=== PATIENT | female | born 1935 | race Caucasian/White ===

== ENCOUNTER 2019-04-01 10:47 | Outpatient (CLI) | payer MEDICARE, SELFPAY ==
[2019-04-01 13:21] LABS: Hemoglobin A1C 7.7 % (<5.7)
[2019-04-01 13:23] LABS: Cholesterol 171 mg/dL (0-200); HDL Direct 45 mg/dL (40-60); LDL Cholesterol Calculated 95 mg/dL (<130); Triglycerides 155 mg/dL (0-150)
== END 2019-04-01 10:48 | disposition home or self-care (01) ==
LOC: CHSLAB 10:50
PROVIDERS: PCP Nurse Practitioner Family; Visit Provider Nurse Practitioner Family
DX: E78.5 Hyperlipidemia, unspecified (principal); E11.9 Type 2 diabetes mellitus without complications
CPT/HCPCS: 36415; 80061; 83036

== ENCOUNTER 2019-11-02 10:56 | Outpatient (CLI) | payer MEDICARE, SELFPAY ==
--- NOTE | ~2019-11-02 | MM_ITS ---
EXAMINATION: MM screening marco a BI w hortencia HISTORY: Screening mammogram TECHNIQUE: Craniocaudal and mediolateral oblique 3-D tomosynthesis images were obtained and synthetic 2-D images were generated. CAD analysis was submitted and interpreted. COMPARISON: 10/28/2018, 10/08/2017, 10/01/2016 bilateral digital screening mammogram examinations BREAST PARENCHYMAL COMPOSITION: There are scattered areas of fibroglandular density. FINDINGS: There is no evidence of suspicious mass, calcification, or architectural distortion to sugg est malignancy in either breast. There has been no suspicious interval change. IMPRESSION: 1. No mammographic evidence of malignancy. 2. Recommend routine screening mammography in one year. BI-RADS Category 1: Negative Reviewed, dictated and finalized at location D.
== END 2019-11-02 10:57 | disposition home or self-care (01) ==
LOC: CHSIMG 10:58
PROVIDERS: PCP Family Medicine; Visit Provider Family Medicine
DX: Z12.31 Encounter for screening mammogram for malignant neoplasm of breast (principal)
CPT/HCPCS: 77063; 77067

== ENCOUNTER 2019-11-04 10:11 | Outpatient (CLI) | payer MEDICARE, SELFPAY ==
[2019-11-04 10:22] LABS: Basophils Absolute Auto 0.03 K/mm3 (0.00-0.10); Basophils Percent Auto 0.4 % (0.0-1.0); Eosinophils Absolute Auto 0.18 K/mm3 (0.02-0.50); Eosinophils Percent Auto 2.6 % (1.0-6.0); Hematocrit 39.1 % (35.0-42.0); Hemoglobin 11.9 g/dL (11.7-13.8); Immature Granulocyte Absolute 0.01 K/mm3 (0.00-0.00); Immature Granulocyte Percent A 0.1 % (0.0-0.0); Lymphocytes Absolute Auto 2.37 K/mm3 (1.10-4.50); Lymphocytes Percent Auto 34.4 % (18.0-42.0); Mean Corpuscular HGB Conc 30.4 g/dL (32.0-36.0); Mean Corpuscular Hemoglobin 26.7 pg (27.0-31.0); Mean Corpuscular Volume 87.7 fL (78.0-102.0); Mean Platelet Volume 8.9 fl (9.2-11.8); Monocytes Absolute Auto 0.57 K/mm3 (0.10-0.90); Monocytes Percent Auto 8.3 % (2.0-11.0); Neutrophils Absolute Auto 3.7 K/mm3 (1.7-7.2); Neutrophils Percent Auto 54.2 % (50.0-70.0); Platelet Count Result 330 K/mm3 (150-420); Red Blood Count 4.46 M/mm3 (4.20-5.40); Red Cell Distribution Width 13.8 % (11.6-14.4); White Blood Count 6.9 K/mm3 (4.8-10.8)
[2019-11-04 10:31] LABS: Hemoglobin A1C 7.7 % (<5.7)
[2019-11-04 12:00] LABS: Alanine Aminotransferase 22 U/L (14-59); Albumin Level 3.9 g/dL (3.4-5.0); Alkaline Phosphatase 112 U/L (46-116); Anion Gap 9 mmol/L (8-16); Aspartate Amino Transferase 18 U/L (15-37); Bilirubin,Total 0.4 mg/dL (0.00-1.00); Blood Urea Nitrogen 14 mg/dL (7-18); Calcium 9.3 mg/dL (8.5-10.1); Carbon Dioxide 30 mmol/L (21-32); Chloride 103 mmol/L (98-108); Cholesterol 185 mg/dL (0-200); Estimated Glomerular Filt Rate > 60; Glucose 156 mg/dL (70-99); HDL Direct 50 mg/dL (40-60); LDL Cholesterol Calculated 110 mg/dL (<130); Magnesium 1.9 mg/dL (1.8-2.4); Osmolality Calculated 297 mOsm/kg (285-295); Potassium 4.7 mmol/L (3.5-5.1); Sodium 142 mmol/L (136-145); Total Protein 7.1 g/dL (6.4-8.2); Triglycerides 127 mg/dL (0-150)
[2019-11-04 12:07] LABS: Thyroid Stimulating Hormone Reflex 1.34 u/IU/mL (0.36-3.74)
== END 2019-11-04 10:12 | disposition home or self-care (01) ==
LOC: CHSLAB 10:13
PROVIDERS: PCP Family Medicine; Visit Provider Family Medicine
DX: E83.42 Hypomagnesemia (principal); E11.9 Type 2 diabetes mellitus without complications; I10 Essential (primary) hypertension
CPT/HCPCS: 36415; 80053; 80061; 83036; 83735; 84443; 85025

== ENCOUNTER 2020-05-23 19:02 | Emergency (ER) | payer MEDICARE, SELFPAY ==
--- NOTE | ~2020-05-23 | XR_ITS ---
XR foot RT min 3V DATE: 05/23/2020 19:36 INDICATION: Right foot pain near talus following twisting injury TECHNIQUE: 4 views COMPARISON: None FINDINGS: Diffuse osteopenia. Prominent hallux valgus and bunion deformity. Prominent osteoarthritic arthritis and mild chondrocalcinosis at the first metatarsophalangeal joint. There is osteoarthritis at the second metatarsophalangeal joint as well. Narrowing at some distal in terphalangeal joints consistent with osteoarthritis. There is osteoarthritic change at the tarsal and tarsometatarsal joints, especially the first tarsome tatarsal joint. There is osteoarthritic change at the tibiotalar joint. Mild plantar and posterior calcaneal enthesopathy. No fracture or dislocation, periosteal reaction or bone destruction is evident. IMPRESSION: Osteopenia and polyarticular osteoarthritis Prominent hallux valgus and bunion deformity Reviewed, dictated and finalized at location A.
[2020-05-23 19:20] VITALS: BP 162/71; PULSE 92; RESP 20; TEMP 36.5; O2SAT 98
--- NOTE | 2020-05-23 19:23 | ED.LOWEXIN ---
HPI - Extremity Injury (Lower) General Chief Complaint: Extremity Injury, Lower Stated Complaint: r ankle/foot pain Time Seen by Provider: 05/23/20 19:30 Source: patient Mode of arrival: ambulatory Limitations: no limitations History of Present Illness HPI Narrative: Patient come in after stepping funny when stepping down from a curb. She has had pain in the superior surface of the talus since that happened today at 4 pm. Pain is made worse by bearing weight, it is moderately severe and sharp when bearing weight, and lessons with rest. Measures taken at home, including taking percocet, have not relieved the pain. Place: street/outdoors Severity: moderate Relieving factors: rest Exacerbating factors: weight bearing Context: other (placing foot down off curb) Related Data Home Medications Medication Instructions Recorded Confirmed aspirin 81 mg tablet,delayed 81 mg PO DAILY 02/23/19 05/23/20 release oxycodone-acetaminophen 5 mg-325 1 tablet PO QID tablet 02/23/19 05/23/20 mg tablet timolol maleate 0.5 % once daily 1 drop EACH EYE Q12H 02/23/19 05/23/20 eye drops ropinirole 0.5 mg PO DAILY 05/23/20 05/23/20 Allergies Allergy/AdvReac Type Severity Reaction Status Date / Time Sulfa (Sulfonamide Allergy Severe Hives Verified 05/23/20 20:13 Antibiotics) Review of Systems Constitutional: Constitutional: Reports no additional constitutional complaints Eyes: Eyes: Reports no additional eye complaints ENT: Reports system reviewed and no additional complaints, except as documented Cardiovascular: Cardiovascular: Reports no additional cardiovascular complaints Respiratory: Respiratory: Reports no additional respiratory complaints Gastrointestinal: Gastrointestinal: Reports no additional gastrointestinal complaints Genitourinary: Genitourinary: Reports no additional female genitourinary complaints Musculoskeletal: Musculoskeletal: Reports no additional musculoskeletal complaints Integumentary/Breasts: Skin/Breast: Reports system reviewed and no additional complaints, except as docu Neurologic: Reports system reviewed and no additional complaints, except as documented Psychiatric: Psychiatric: Reports no additional psychiatric complaints Endocrine: Endocrine: Reports no additional endocrine complaints Hematologic/Lymphatic: Hematologic/Lymphatic: Reports no additional hematologic/lymphatic complaints Allergic/Immunologic: Allergic/Immunologic: Reports no additional allergic/immunologic complaints PMFSH Past Medical History Medical History Absolute glaucoma, bilateral Arm fracture, right Breast cancer Cataract Chronic pain Cystocele Generalized osteoarthritis Glaucoma Hyperlipidemia Hypertension Hypomagnesemia Osteoporosis Overweight Spinal stenosis Type 2 diabetes mellitus Surgical History Surgical History H/O knee surgery H/O lumpectomy History of back surgery History of hysterectomy for benign disease Hx of cholecystectomy Family History Family History Grandparent Family history of malignant neoplasm of breast in first degree relative Other Acute myocardial infarction Social History Social History Smoking status: Never smoker Second hand tobacco smoke exposure: No Alcohol intake: never Gender identity (if verbalized by the patient): Female Exam Const: General: no acute distress Orientation/consciousness: patient oriented x3 HENMT: Head: normal to inspection Ears: external ears normal General nose exam: Normal external nose present and Normal nares present Eyes: Conjunctivae: conjunctivae normal Neck: Neck: normal visual inspection Chest: Chest palpation & inspection: normal inspection of the chest Resp: Effort & Inspection: normal respiratory effort
[2020-05-23] MEDS: KETOROLAC (*BKC) 60 MG/2 ML VIAL IM (20:10)
[2020-05-23 20:36] VITALS: BP 152/77; PULSE 66; RESP 20; TEMP 36.7; O2SAT 97
== END 2020-05-23 20:36 | disposition home or self-care (01) ==
PROVIDERS: Emergency Provider Emergency Medicine; PCP Family Medicine
DX: M79.671 Pain in right foot (principal)
CPT/HCPCS: 73630; 96372; 99283; J1885

== ENCOUNTER 2020-07-05 09:16 | Outpatient (CLI) | payer MEDICARE, SELFPAY ==
[2020-07-05 09:49] LABS: Creatinine Urine 59.19 mg/dL (40-278); MALB Creatinine Ratio 29.2 mg/g (0-30); Microalbumin Urine Random 17.3 mg/L
[2020-07-05 09:51] LABS: Hemoglobin A1C 8.1 % (<5.7)
== END 2020-07-05 09:17 | disposition home or self-care (01) ==
LOC: CHSLAB 09:19
PROVIDERS: PCP Family Medicine; Visit Provider Nurse Practitioner Family
DX: E11.9 Type 2 diabetes mellitus without complications (principal)
CPT/HCPCS: 36415; 82043; 83036

== ENCOUNTER 2020-08-14 14:28 | Outpatient (CLI) | payer MEDICARE, SELFPAY ==
--- NOTE | ~2020-08-14 | DEXA_ITS ---
Bone Density Report Name: Aby Gómez Age: 85 Sex: Female Ethnicity: White Date of : 1935 Indication: screening for osteoporosis; height loss; prior fracture; Referring Provider: Giulia He Study: Bone densitometry was performed. Exam Date: August 14, 2020 Accession number: [id number] Bone Density: Region BMD T-score Z-score Classification AP Spine(L1, L2) 0.915 -0.6 2.1 Normal Femoral Neck (Left) 0.565 -2.6 -0.1 Osteoporosis Total Hip (Left) 0.649 -2.4 -0.1 Osteopenia Femoral Neck (Right) 0.504 -3.1 -0.6 Osteoporosis Total Hip (Right) 0.683 -2.1 0.1 Osteopenia Femoral Neck Mean 0.535 -2.8 -0.4 Osteoporosis Total Hip Mean 0.666 -2.3 0.0 Osteopenia World Health Organization criteria for BMD impression classify patients as: Normal (T-score at or above -1.0), Osteopenia (T-score between -1.0 and -2.5), or Osteoporosis (T-score at or below -2.5). 10-year Fracture Risk: FRAX not reported because: Premenopausal woman Some T-score for Spine Total or Hip Total or Femoral Neck at or below -2.5 Previous Exams: Region Exam Age BMD T-score BMD Change BMD Change Date g/cm2 vs Baseline vs Previous AP Spine (L1-L2) 08/14/2020 85 0.915 -0.6 -0.091 (-9.0%) -0.091 (-9.0%) 06/09/2008 73 1.006 0.2 Total Hip(Left) 08/14/2020 85 0.649 -2.4 -0.204 (-23.9% -0.204 (-23.9% 06/09/2008 73 0.853 -0.7 Total Hip(Right) 08/14/2020 85 0.683 -2.1 -0.171 (-20.1% -0.171 (-20.1% 06/09/2008 73 0.854 -0.7 *Denotes significance at 95% confidence level, LSC for AP Spine = 0.022 g/cm2, LSC for Total Hip = 0.027 g/cm2 # Denotes dissimilar scan types or analysis methods Clinical Information Provided by Patient: Has had a low trauma fracture Patient maximum height was 62 No regular weight bearing exercise Drinks caffeinated beverages Onset of menses at age 13 Premenopausal Number of children 4 Impression: The patient's bone mass is within expected range for age, gender and ethnicity. The patient has risk factors, including: previous fracture. No significant bone loss was observed. Discussion: BONE DENSITY IS WITHIN EXPECTED LIMITS FOR AGE, SEX AND RACE. Bone density is within expected limits for age, sex and race at all sites measured. The patient should follow a healthful lifestyle (good nutrition with adequate calcium and vitamin D, and appropriate weight-bearing exercise). Follow-Up: Consider a repeat
== END 2020-08-14 14:29 | disposition home or self-care (01) ==
LOC: CHSIMG 14:31
PROVIDERS: PCP Nurse Practitioner Family; Visit Provider Nurse Practitioner Family
DX: M81.0 Age-related osteoporosis without current pathological fracture (principal)
CPT/HCPCS: 77080

== ENCOUNTER 2020-08-15 11:03 | Outpatient (RCR) | payer MEDICARE, SELFPAY ==
--- NOTE | 2020-08-15 11:35 | PTOPEVAL ---
Thank you for referring Aby Gómez to [facility].? The patient is scheduled to be seen for therapy? __3__x/week for 12 visits. Please review, sign, date and return this plan of care JOSÉ LUIS. I agree with and certify that the following plan of care is medically necessary. Referring Physician Date Admitting Provider: Attending Provider: Kenyon Wharton MD Referring Provider: *PT Outpatient Evaluation Start: 08/15/20 11:06 Freq: Status: Active Protocol: Document 08/15/20 11:06 TIANA (Rec: 08/15/20 11:33 TIANA [id number]) Therapy Assessment Status Assessment Status Assessment Status Evaluation Outpatient Past Medical History Cardiovascular History Hx Hypertension Yes Endocrine History Hx Diabetes Yes Evaluation Information Problem Diagnosis gait abnormality, back pain Onset 08/10/20 Subjective Information Pt. reports she went to the Query Text:As Reported By Patient/ doctor last week. she states Family that she has noticed more difficulty with walking and is having trouble using a cane and has been having to use her walker more. She recalls no recent falls, but notices she is reaching for furniture to walk through the home. She states that she also experiences chronic back pain. She notices she is starting to bend forward more, due to pain. She reports that her goal for therapy is to improve her strength and balnace so she can do more activities outside the home. Prior Level of Function Activity Level (Last 3 Months) Occupation retired Hand Dominance Right Activity of Daily Living Ability Independent Indoor/Home Mobility Independent Community Mobility Independent Stairs Ability Independent Functional Cognition (Planning, Shopping Independent , Taking Medications) Cooking Yes Cleaning Yes Laundry Yes Shopping Yes Driving Yes Pain Assessment Pain Scale Pain Scale Used Numeric (1 - 10) Self Report Pain Assessment Lower Back Reported Pain Level 1 Lowest Pain Intensity 1 Greatest Pain Intensity 1 Pain Aggravating
--- NOTE | 2020-09-07 13:49 | PTOPEVAL ---
Thank you for referring Aby Gómez to [facility].? The patient is scheduled to be seen for therapy? ____x/week for ___ weeks. Please review, sign, date and return this plan of care JOSÉ LUIS. I agree with and certify that the following plan of care is medically necessary. Referring Physician Date Admitting Provider: Attending Provider: Kenyon Wharton MD Referring Provider: *PT Outpatient Evaluation Start: 08/15/20 11:06 Freq: Status: Active Protocol: Document 09/07/20 10:44 ACR (Rec: 09/07/20 11:58 ACR [id number]) Therapy Assessment Status Assessment Status Assessment Status Progress Outpatient Past Medical History Cardiovascular History Hx Hypertension Yes Endocrine History Hx Diabetes Yes Evaluation Information Problem Diagnosis gait abnormality Onset 08/10/20 Subjective Information Patient states that since Query Text:As Reported By Patient/ beginning therapy she has felt Family a lot better. She feels that her balance is a lot better and she feels that she is quite a bit stronger as well. She states she is able to walk more. She states that she feels weaker in her arms and would like to work on that. The patient states that balance on uneven surfaces and still lacks endurance. Pain Assessment Timing of Pain Assessment Timing of Pain Assessment Pre-Treatment Pain Scale Pain Scale Used Numeric (1 - 10) Self Report Pain Assessment Lower Back Reported Pain Level 4 Lowest Pain Intensity 1 Greatest Pain Intensity 5 Pain Score Pain Score 4: Self Report Interventions Used Interventions Used By Clinicians Activity or ADL's,Exercise Lower Extremity Muscle Strength Testing General Lower Extremity Strength Gross Lower Extremity Strength B hip flexion: 4+/5 B hip abduction: 4/5 B hip extension: 4/5 B knee extension: 5/5 B knee flexion: 4+/5 B ankle DF: 4+/5 Upper Extremity Muscle Strength Testing General Upper Extremity Strength Gross Upper Extremity Strength Comments B shoulder flexion: 3+/5 B shoulder abduction: 3+/5 B shoulder IR: 4/5 B shoulder ER: 3+/5 Balance Assessment Tinetti Balance Assessment Sitting Balance Steady, safe Ability to Arise Abl
--- NOTE | 2020-10-17 13:52 | PTOPEVAL ---
Thank you for referring Aby Gómez to [facility].? The patient is scheduled to be seen for therapy? ____x/week for ___ weeks. Please review, sign, date and return this plan of care JOSÉ LUIS. I agree with and certify that the following plan of care is medically necessary. Referring Physician Date Admitting Provider: Attending Provider: Kenyon Wharton MD Referring Provider: *PT Outpatient Evaluation Start: 08/15/20 11:06 Freq: Status: Active Protocol: Document 10/17/20 13:05 ACR (Rec: 10/17/20 13:50 ACR [email or web address]) Therapy Assessment Status Assessment Status Assessment Status Discharge Outpatient Past Medical History Cardiovascular History Hx Hypertension Yes Endocrine History Hx Diabetes Yes Evaluation Information Problem Diagnosis gait abnormality Onset 08/10/20 Subjective Information Patient has a lot going on in Query Text:As Reported By Patient/ her life and feels that is Family effecting her improvement. She feels that she is has definitely improved, but continues to compensate for things. She would like to be done at this time because she can do a lot of the stuff at home. Pain Assessment Timing of Pain Assessment Timing of Pain Assessment Assessment Pain Scale Pain Scale Used Numeric (1 - 10) Self Report Pain Assessment Lower Back Reported Pain Level 5 Lowest Pain Intensity 2 Pain Score Pain Score 5: Self Report Interventions Used Interventions Used By Clinicians Activity or ADL's,Exercise Lower Extremity Muscle Strength Testing General Lower Extremity Strength Gross Lower Extremity Strength B hip flexion: 4+/5 B hip abduction: 4/5 B hip extension: 4/5 B knee extension: 4+/5 B knee flexion: 4+/5 B ankle DF: 5/5 Upper Extremity Muscle Strength Testing General Upper Extremity Strength Gross Upper Extremity Strength Comments B shoulder flexion: 3+/5 B shoulder abduction: 4+/5 B shoulder IR: 4/5 B shoulder ER: 4/5 Balance Assessment Tinetti Balance Assessment Sitting Balance Steady, safe Ability to Arise Able, w/o using arms Attempts to Arise Arises on 1st attempt Immediate Standing Balance Steady with support Standing Balance Steady, wide stance Nudged Response Steady Standing with Ey
== END 2020-10-17 15:06 | disposition home or self-care (01) ==
LOC: CHSPT 11:03
PROVIDERS: PCP Family Medicine; Visit Provider Family Medicine
DX: G89.29 Other chronic pain (principal); R26.9 Unspecified abnormalities of gait and mobility; R48.2 Apraxia; R53.83 Other fatigue
CPT/HCPCS: 97110; 97112; 97161; 97530

== ENCOUNTER 2020-12-18 09:39 | Emergency (ER) | payer MEDICARE, SELFPAY ==
--- NOTE | ~2020-12-18 | XR_ITS ---
XR ankle LT min 3V 12/18/2020 10:25 Indication: Left ankle pain and swelling Procedure: 4 views left ankle Comparison: No prior studies for comparison. Findings: No fracture, subluxation or dislocation. There are extensive arterial calcifications. Osteo penia. There is a degenerative calcaneal enthesophyte. There is evidence for osteochondral fracture i nvolving the medial aspect of the talar dome. There is moderate degenerative change of the hind foot. Impression: 1: No acute fracture. 2: Osteochondral defect medial margin of the talar dome. Reviewed, dictated and finalized at location A. CTOR TESTER Impression: 1: No acute fracture. 2: Osteochondral defect medial margin of the talar dome.
[2020-12-18 09:57] VITALS: BP 144/66; PULSE 72; RESP 18; TEMP 36.8; O2SAT 100
--- NOTE | 2020-12-18 09:58 | ED.EXTPRO ---
HPI - Extremity Problem General Chief complaint: Extremity Problem,Nontraumatic Stated complaint: can't walk on left ankle Time Seen by Provider: 12/18/20 09:59 Source: patient Mode of arrival: wheelchair History of Present Illness HPI Narrative: 85-year-old female with history of hypertension, diabetes mellitus, dyslipidemia, arthritis with chronic pain, status post knee surgery, spinal stenosis status post back surgery, peripheral neuropathy, gait apraxia presented to the ER with left ankle pain and swelling for the past few days. Patient has not had any trauma. The patient had some unaccustomed walking over the past few days. No fever. She has chronic joint pain but no evidence of any other focal joint involvement. MD Complaint: extremity pain and other ( Left ankle pain and swelling) Onset (ago): day(s) Pain Consistency: constant Location: left and lower extremity Severity scale (1-10): 7 Quality: aching Radiation: none Relieving factors: immobilization Exacerbating factors: weight bearing and walking Associated symptoms: denies other symptoms Related Data Home Medications Medication Instructions Recorded Confirmed aspirin 81 mg tablet,delayed 81 mg PO DAILY 02/23/19 08/10/20 release oxycodone-acetaminophen 5 mg-325 1 tablet PO QID tablet 02/23/19 08/10/20 mg tablet timolol maleate 0.5 % once daily 1 drop EACH EYE Q12H 02/23/19 08/10/20 eye drops Allergies Allergy/AdvReac Type Severity Reaction Status Date / Time Sulfa (Sulfonamide Allergy Severe Hives Verified 08/20/20 12:27 Antibiotics) Review of Systems Review of Systems: All systems reviewed & are unremarkable except as noted in HPI and below Constitutional: Constitutional: Reports as per HPI Eyes: Eyes: Reports no additional eye complaints ENT: Reports system reviewed and no additional complaints, except as documented Cardiovascular: Cardiovascular: Reports no additional cardiovascular complaints Respiratory: Respiratory: Reports no additional respiratory complaints Gastrointestinal: Gastrointestinal: Reports no additional gastrointestinal complaints Genitourinary: Genitourinary: Reports no additional female genitourinary complaints Musculoskeletal: Musculoskeletal: Reports no additional musculoskeletal complaints Comments: left ankle pain and swelling. Integumentary/Breasts: Skin/Breast: Reports system reviewed and no additional complaints, except as docu Neurologic: Reports system reviewed and no additional complaints, except as documented Psychiatric: Psychiatric: Reports no additional psychiatric complaints Endocrine: Endocrine: Reports no additional endocrine complaints Hematologic/Lymphatic: Hematologic/Lymphatic: Reports no additional hematologic/lymphatic complaints Allergic/Immunologic: Allergic/Immunologic: Reports no additional allergic/immunologic complaints [facility] Past Medical History Medical History Abnormality of gait and mobility Absolute glaucoma, bilateral Arm fracture, right Breast cancer Cataract Chronic pain Cystocele Fatigue Gait apraxia of elderly Generalized osteoarthritis Glaucoma Hyperlipidemia Hypertension Hypomagnesemia Osteoporosis Overweight Peripheral neuropathy Restless legs syndrome Spinal stenosis Type 2 diabetes mellitus Surgical History Surgical History H/O knee surgery H/O lumpectomy History of back surgery History of hysterectomy for benign disease Hx of cholecystectomy Family History Family History Grandparent Family history of malignant neoplasm of breast in first degree relative Other Acute myocardial infarction Social History Social History Smoking status: Never smoker Second hand tobacco smoke exposure: No Alcohol intake: never
[2020-12-18] MEDS: MORPHINE SULFATE (*CRX) 4 MG/ML INJ IM (11:24)
[2020-12-18] MEDS: ONDANSETRON HCL ODT 4 MG TABLET PO (11:24)
[2020-12-18 11:45] VITALS: BP 149/60; PULSE 77; RESP 18; O2SAT 98
== END 2020-12-18 12:31 | disposition home or self-care (01) ==
PROVIDERS: Emergency Provider Internal Medicine Critical Care Medicine; PCP Family Medicine
DX: S82.892A Other fracture of left lower leg, initial encounter for closed fracture (principal); M25.472 Effusion, left ankle; E78.5 Hyperlipidemia, unspecified; I10 Essential (primary) hypertension; M81.0 Age-related osteoporosis without current pathological fracture; E11.9 Type 2 diabetes mellitus without complications
CPT/HCPCS: 73610; 96372; 99283; A9270; J2270

== ENCOUNTER 2021-02-21 15:57 | Outpatient (CLI) | payer MEDICARE, SELFPAY ==
--- NOTE | ~2021-02-21 | XR_ITS ---
XR wrist RT 2V DATE: 02/21/2021 16:22 INDICATION: Ulnar wrist pain. History of prior fracture in 2004. TECHNIQUE: AP and lateral views of right wrist COMPARISON: None FINDINGS: Diffuse osteopenia. Old ununited fracture of the ulnar styloid process. Probable old healed mild fracture deformity of th e distal radius. Triangular cartilage chondrocalcinosis. There is prominent osteoarthritis at the first metacarpophalangeal joint and fifth distal interphalan geal joint. No recent fracture or dislocation, periosteal reaction or bone destruction is detected. IMPRESSION: Diffuse osteopenia Old fracture findings of distal radius and ulna Chondrocalcinosis Osteoarthritis Reviewed, dictated and finalized at location J. ENTER ROUGH
== END 2021-02-21 15:58 | disposition home or self-care (01) ==
LOC: CHSIMG 16:00
PROVIDERS: PCP Nurse Practitioner Family; Visit Provider Nurse Practitioner Family
DX: M25.531 Pain in right wrist (principal)
CPT/HCPCS: 73100

== ENCOUNTER 2021-04-24 11:03 | Outpatient (RCR) | payer MEDICARE, SELFPAY ==
--- NOTE | 2021-04-24 11:56 | OTOPEVAL ---
Thank you for referring Aby Gómez to [facility].? The patient is scheduled to be seen for therapy? ____x/week for ___ weeks. Please review, sign, date and return this plan of care JOSÉ LUIS. I agree with and certify that the following plan of care is medically necessary. Referring Physician Date Admitting Provider: Attending Provider: Joel Tse MD Referring Provider: *OT Outpatient Evaluation Start: 04/24/21 10:26 Freq: Status: Active Protocol: Document 04/24/21 10:26 [facility] (Rec: 04/24/21 11:56 [facility] [id number]) Therapy Assessment Status Assessment Status Assessment Status Evaluation Outpatient Past Medical History Cardiovascular History Hx Hypertension Yes Endocrine History Hx Diabetes Yes Reproductive History Hx Post Menopausal Yes Evaluation Information Problem Diagnosis R wrist pain Onset 03/12/21 Subjective Information Quick DASH: 59.1% Query Text:As Reported By Patient/ Patient reports that she is Family having trouble with her R wrist and wonders if she had a stroke. Patient states that it is difficult to brush her hair, turn on lights, push buttons, put a necklace on, close a car door and lift anything with the right hand secondary to pain. Patient states that she broke her R wrist ~10 years ago and had pins placed and now her wrist is bothering her where those pins previously were. Patient states that the pain goes up into her forearm. Patient just got a R wrist orthosis ( neoprene) and has been wearing it. Patient reports that she enjoys painting ceramics and will sometimes drop the brush secondary to numbness. Prior Level of Function Activity Level (Last 3 Months) Hand Dominance Right Indoor/Home Mobility Independent Community Mobility Independent Stairs Ability Independent Functional Cognition (Planning, Shopping Independent , Taking Medications) Cooking Yes Cleaning Yes Laundry Yes Shopping Yes Driving Yes H
--- NOTE | 2021-05-31 13:55 | OTOPEVAL ---
Thank you for referring Aby Gómez to [facility].? The patient is scheduled to be seen for therapy? ____x/week for ___ weeks. Please review, sign, date and return this plan of care JOSÉ LUIS. I agree with and certify that the following plan of care is medically necessary. Referring Physician Date Admitting Provider: Attending Provider: Joel Tse MD Referring Provider: *OT Outpatient Evaluation Start: 04/24/21 10:26 Freq: Status: Active Protocol: Document 05/31/21 13:00 [facility] (Rec: 05/31/21 13:55 [facility] [id number]) Therapy Assessment Status Assessment Status Assessment Status Discharge Outpatient Past Medical History Cardiovascular History Hx Hypertension Yes Endocrine History Hx Diabetes Yes Reproductive History Hx Post Menopausal Yes Evaluation Information Problem Subjective Information Patient reports that overall Query Text:As Reported By Patient/ her R wrist is feeling well. Family She states that she continues to struggle with getting her R arm behind her head. Quick DASH: 34.1% Pain Assessment Timing of Pain Assessment Timing of Pain Assessment Re-assessment Pain Scale Pain Scale Used Numeric (1 - 10) Self Report Pain Assessment Right Wrist(s) Reported Pain Level 1 Pain Score Pain Score 1: Self Report Interventions Used Interventions Used By Clinicians Heat Upper Extremity Range of Motion Wrist Range of Motion Right Wrist Flexion - Active 60 Wrist Extension - Active 60 Upper Extremity Muscle Strength Testing General Upper Extremity Strength Gross Upper Extremity Strength Comments R wrist flex/ext: 4+/5 Hand Human Relations Professor/Pinch Strength Assessment Hand Right Human Relations Professor Strength (lbs) 34 General Exercise General Exercises Side Right Exercise Description R wrist flex/ext using 1# Query Text:Record Sets, Reps, weight 20 x 2 Resistance, and Position R wrist sup/pro using 1# weight 20 x 2 R ulnar/radial deviation using 1# weight 20 x 2 Red clothespin pincer grasp 20 x 2 red digi-flex, 20 x 2 R shoulder external rotation stretch overhead and with cane , holding ~20 seconds x 2 reps each R pink putty resisting composite, 10 reps x 1 Manual Therapy Manual Therapy Side Right Manual Therapy Location
== END 2021-05-31 14:56 | disposition home or self-care (01) ==
LOC: CHSOT 11:03
PROVIDERS: Visit Provider Orthopaedic Surgery
DX: M25.531 Pain in right wrist (principal)
CPT/HCPCS: 97014; 97110; 97140; 97165; G0283

== ENCOUNTER 2022-03-20 16:10 | Emergency (ER) | payer MEDICARE, SELFPAY ==
[2022-03-20 16:45] VITALS: BP 144/84; PULSE 103; RESP 18; TEMP 37.1; O2SAT 95
--- NOTE | 2022-03-20 17:00 | ED.HA ---
HPI - Headache General Chief Complaint: Headache Stated Complaint: dizzy, headache, tired Time Seen by Provider: 03/20/22 16:13 Source: patient and family Mode of arrival: ambulatory History of Present Illness HPI Narrative: this is an 87-year-old female that presents with muscle aches feeling feverish headache with no shortness of breath temperature is normal with no nausea or vomiting no sinus congestion no chest pain no abdominal pain no flank pain no dysuria. MD elicited complaint: headache Onset (ago): hour(s) Onset description: gradually Related Data Home Medications Medication Instructions Recorded Confirmed aspirin 81 mg tablet,delayed 81 mg PO DAILY 02/23/19 04/22/21 release (Adult Aspirin Regimen) oxycodone-acetaminophen 5 mg-325 1 tablet PO QID 02/23/19 04/22/21 mg tablet (Percocet) timolol maleate 0.5 % once daily 1 drop ophthalmic (eye) Q12H 02/23/19 04/22/21 eye drops acetaminophen 500 mg tablet 500 mg PO Q6H PRN 04/23/21 (Tylenol Extra Strength) fenofibrate nanocrystallized 48 mg 48 mg PO DAILY 04/23/21 tablet gabapentin 300 mg capsule 300 mg PO TID 04/23/21 Allergies Allergy/AdvReac Type Severity Reaction Status Date / Time Sulfa (Sulfonamide Allergy Severe Hives Verified 04/23/21 08:23 Antibiotics) Review of Systems Review of Systems: All systems reviewed & are unremarkable except as noted in HPI and below PMFSH Past Medical History Medical History Abnormality of gait and mobility Absolute glaucoma, bilateral Arm fracture, right Breast cancer Cataract Chronic pain Cystocele Fatigue Gait apraxia of elderly Generalized osteoarthritis Glaucoma Hyperlipidemia Hypertension Hypomagnesemia Nondisplaced dome fracture of left talus Osteoporosis Overweight Peripheral neuropathy Restless legs syndrome Spinal stenosis Traumatic arthritis of right wrist Type 2 diabetes mellitus Surgical History Surgical History H/O knee surgery H/O lumpectomy History of back surgery History of hysterectomy for benign disease Hx of cholecystectomy Family History Family History Grandparent Family history of malignant neoplasm of breast in first degree relative Other Acute myocardial infarction Social History Social History Smoking status: Never smoker Second hand tobacco smoke exposure: No Alcohol intake: never Substance use: never Substance use type: does not use Gender identity (if verbalized by the patient): Female Exam Const: General: healthy appearing Nutritional Appearance: well nourished Orientation/consciousness: patient oriented x3 Limitations: no limitations HENMT: Head: normal to inspection Ears: external ears normal Face/Nose/Sinus: Normal external nose present Face and sinus: normal facial exam Eyes: Conjunctivae: conjunctivae normal Pupils: Equal, round and reactive pupils present Neck: Neck: normal visual inspection Chest: Chest palpation & inspection: normal inspection of the chest Resp: Effort & Inspection: normal respiratory effort Auscultation: clear to auscultation bilaterally Cardio: Rate: regular rate Rhythm: regular rhythm GI: GI Palp: Yes Soft to palpation Auscultation: normal bowel sounds : General: Yes bladder normal to palpation Urinary Catheter: Urinary Catheter: patent and draining Back/Spine/Pelvis: Back: no CVA tenderness Skin: General skin exam: normal color Rashes: no rashes Wounds: no wounds Neuro: General: patient oriented x3 Cranial nerves: Yes Nystagmus not present Speech: normal speech Gait exam (Neuro): Normal gait present Extrem: General: normal to inspection Psych: Mental Status: mental status grossly normal Affect: normal affect Course Course Emergency Course:
[2022-03-20 17:29] VITALS: BP 129/82; PULSE 91; RESP 18; TEMP 36.9; O2SAT 95
--- NOTE | 2022-03-20 17:34 | PC.NURSE ---
On 03/20/22, the student, [SARAHI CARRASCO ], provided care and completed [facility] documentation on this patient. I have reviewed the student's documentation and agree with the findings
== END 2022-03-20 17:36 | disposition home or self-care (01) ==
PROVIDERS: Emergency Provider Emergency Medicine; PCP Nurse Practitioner Family
DX: R51.9 Headache, unspecified (principal); R42 Dizziness and giddiness; T50.Z95A Adverse effect of other vaccines and biological substances, initial encounter; E78.5 Hyperlipidemia, unspecified; I10 Essential (primary) hypertension; E11.9 Type 2 diabetes mellitus without complications; Z85.3 Personal history of malignant neoplasm of breast
CPT/HCPCS: 99283

== ENCOUNTER 2022-03-25 16:19 | Outpatient (NON) | payer MEDICARE, SELFPAY ==
[2022-03-25 16:31] LABS: Add Urine Microscopic? YES; Appearance Urine Clear (Clear); Bilirubin Urine Negative (Negative); Blood Urine Negative (Negative); Color Urine Light Yellow (Yellow); Glucose Urine UA Negative (Negative); Ketones Urine Negative (Negative); Leukocyte Esterase Ur 1+ LEU/UL (Negative); Nitrate Urine Negative (Negative); Protein Urine Negative (Negative); Specific Grav Ur 1.015 (1.010-1.020)
[2022-03-25 16:38] LABS: Bacteria Urine 4+ /hpf; RBC Urine None seen /hpf (0-2); Squamous Epithelial Cell Urine Few /hpf (Few); WBC Urine 16-20 /hpf (0-3)
== END 2022-03-25 16:20 | disposition home or self-care (01) ==
LOC: CHSLAB 16:21
PROVIDERS: Visit Provider Nurse Practitioner Family
DX: R39.9 Unspecified symptoms and signs involving the genitourinary system (principal)
CPT/HCPCS: 81001; 87077; 87086; 87088

== ENCOUNTER 2022-07-01 11:17 | Outpatient (CLI) | payer MEDICARE, SELFPAY ==
[2022-07-01 11:32] LABS: Basophils Absolute Auto 0.05 K/mm3 (0.00-0.10); Basophils Percent Auto 0.8 % (0.0-1.0); Eosinophils Absolute Auto 0.15 K/mm3 (0.02-0.50); Eosinophils Percent Auto 2.5 % (1.0-6.0); Hematocrit 37.5 % (35.0-42.0); Hemoglobin 11.7 g/dL (11.7-13.8); Immature Granulocyte Absolute 0.02 K/mm3 (0.00-0.00); Immature Granulocyte Percent A 0.3 % (0.0-0.0); Lymphocytes Absolute Auto 2.07 K/mm3 (1.10-4.50); Lymphocytes Percent Auto 34.4 % (18.0-42.0); Mean Corpuscular HGB Conc 31.2 g/dL (32.0-36.0); Mean Corpuscular Hemoglobin 27.8 pg (27.0-31.0); Mean Corpuscular Volume 89.1 fL (78.0-102.0); Mean Platelet Volume 9.7 fl (9.2-11.8); Monocytes Absolute Auto 0.41 K/mm3 (0.10-0.90); Monocytes Percent Auto 6.8 % (2.0-11.0); Neutrophils Absolute Auto 3.3 K/mm3 (1.7-7.2); Neutrophils Percent Auto 55.2 % (50.0-70.0); Platelet Count Result 337 K/mm3 (150-420); Red Blood Count 4.21 M/mm3 (4.20-5.40); Red Cell Distribution Width 13.6 % (11.6-14.4)
[2022-07-01 12:17] LABS: Alanine Aminotransferase 23 U/L (14-59); Albumin Level 3.7 g/dL (3.4-5.0); Alkaline Phosphatase 115 U/L (46-116); Anion Gap 7 mmol/L (8-16); Aspartate Amino Transferase 20 U/L (15-37); Bilirubin,Total 0.4 mg/dL (0.00-1.00); Blood Urea Nitrogen 16 mg/dL (7-18); Calcium 9.1 mg/dL (8.5-10.1); Carbon Dioxide 28 mmol/L (21-32); Chloride 102 mmol/L (98-108); Cholesterol 177 mg/dL (0-200); Estimated Glomerular Filt Rate > 60; Glucose 233 mg/dL (70-99); HDL Direct 48 mg/dL (40-60); LDL Cholesterol Calculated 94 mg/dL (<130); Osmolality Calculated 292 mOsm/kg (285-295); Potassium 4.7 mmol/L (3.5-5.1); Sodium 137 mmol/L (136-145); Total Protein 6.9 g/dL (6.4-8.2); Triglycerides 175 mg/dL (0-150)
[2022-07-01 13:07] LABS: Hemoglobin A1C 8.2 % (<5.7)
[2022-07-07 16:57] LABS: Vitamin D 25 Hydroxy 52 ng/mL (30-100)
== END 2022-07-01 11:18 | disposition home or self-care (01) ==
LOC: CHSLAB 11:19
PROVIDERS: PCP Nurse Practitioner Family; Visit Provider Nurse Practitioner Family
DX: E78.5 Hyperlipidemia, unspecified (principal); E11.9 Type 2 diabetes mellitus without complications; I10 Essential (primary) hypertension; Z79.899 Other long term (current) drug therapy
CPT/HCPCS: 36415; 80053; 80061; 82306; 83036; 85025

== ENCOUNTER 2023-02-11 12:43 | Outpatient (CLI) | payer MEDICARE, SELFPAY ==
[2023-02-11 12:57] LABS: Basophils Absolute Auto 0.04 K/mm3 (0.00-0.10); Basophils Percent Auto 0.5 % (0.0-1.0); Eosinophils Absolute Auto 0.16 K/mm3 (0.02-0.50); Eosinophils Percent Auto 1.9 % (1.0-6.0); Hematocrit 37.2 % (35.0-42.0); Hemoglobin 11.5 g/dL (11.7-13.8); Immature Granulocyte Absolute 0.02 K/mm3 (0.00-0.00); Immature Granulocyte Percent A 0.2 % (0.0-0.0); Lymphocytes Percent Auto 29.3 % (18.0-42.0); Mean Corpuscular HGB Conc 30.9 g/dL (32.0-36.0); Mean Corpuscular Hemoglobin 27.4 pg (27.0-31.0); Mean Corpuscular Volume 88.6 fL (78.0-102.0); Mean Platelet Volume 9.6 fl (9.2-11.8); Monocytes Absolute Auto 0.57 K/mm3 (0.10-0.90); Monocytes Percent Auto 6.7 % (2.0-11.0); Neutrophils Absolute Auto 5.2 K/mm3 (1.7-7.2); Neutrophils Percent Auto 61.4 % (50.0-70.0); Platelet Count Result 347 K/mm3 (150-420); Red Cell Distribution Width 13.4 % (11.6-14.4); White Blood Count 8.5 K/mm3 (4.8-10.8)
[2023-02-11 13:05] LABS: Hemoglobin A1C 8.6 % (<5.7)
[2023-02-11 14:32] LABS: Alanine Aminotransferase 24 U/L (14-59); Albumin Level 3.8 g/dL (3.4-5.0); Alkaline Phosphatase 89 U/L (46-116); Anion Gap 5 mmol/L (8-16); Aspartate Amino Transferase 12 U/L (15-37); Bilirubin,Total 0.4 mg/dL (0.00-1.00); Blood Urea Nitrogen 15 mg/dL (7-18); Calcium 9.6 mg/dL (8.5-10.1); Carbon Dioxide 32 mmol/L (21-32); Chloride 101 mmol/L (98-108); Cholesterol 177 mg/dL (0-200); Estimated Glomerular Filt Rate > 60; Glucose 135 mg/dL (70-99); HDL Direct 40 mg/dL (40-60); LDL Cholesterol Calculated 99 mg/dL (<130); Magnesium 1.5 mg/dL (1.8-2.4); Osmolality Calculated 288 mOsm/kg (285-295); Potassium 4.7 mmol/L (3.5-5.1); Sodium 138 mmol/L (136-145); Total Protein 7.1 g/dL (6.4-8.2); Triglycerides 192 mg/dL (0-150)
[2023-02-13 12:25] LABS: Vitamin D 25 Hydroxy 49 ng/mL (30-100)
== END 2023-02-11 12:44 | disposition home or self-care (01) ==
LOC: CHSLAB 12:45
PROVIDERS: PCP Nurse Practitioner Family; Visit Provider Nurse Practitioner Family
DX: E78.5 Hyperlipidemia, unspecified (principal); Z13.6 Encounter for screening for cardiovascular disorders; E11.9 Type 2 diabetes mellitus without complications; Z79.899 Other long term (current) drug therapy; I10 Essential (primary) hypertension
CPT/HCPCS: 36415; 80053; 80061; 82306; 83036; 83735; 85025

== ENCOUNTER 2023-05-28 11:55 | Outpatient (CLI) | payer MEDICARE, SELFPAY ==
--- NOTE | ~2023-05-28 | XR_ITS ---
EXAM: XR shoulder LT min 2V DATE: 05/28/2023 12:29 HISTORY: shoulder pain . COMPARISON: None available. FINDINGS: Decreased mineralization. No fracture or dislocation. No lytic or blastic lesion. Moderate AC joint and severe glenohumeral degenerative change. AC joint chondrocalcinosis. Intensive calcific deposition in the rotator cuff and or subacromial subdeltoid bursa. No erosion or periosteal change. Soft tissues within normal limits. IMPRESSION: Polyarticular left shoulder arthritis, severe at the glenohumeral joint. Extensive calcif ic deposition may represent a combination of chondrocalcinosis, calcific tendinitis, and/or dystrophi c calcification within the subacromial, subdeltoid bursa. Reviewed, dictated and finalized at location K. IMPRESSION: Polyarticular left shoulder arthritis, severe at the glenohumeral j oint. Extensive calcific deposition may represent a combination of chondrocalci nosis, calcific tendinitis, and/or dystrophic calcification within the subacrom ial, subdeltoid bursa.
== END 2023-05-28 11:56 ==
PROVIDERS: PCP Nurse Practitioner Family; Visit Provider Nurse Practitioner Family
DX: M25.512 Pain in left shoulder (principal); M19.012 Primary osteoarthritis, left shoulder
CPT/HCPCS: 73030

== ENCOUNTER 2023-07-21 13:50 | Outpatient (RCR) | payer MEDICARE, SELFPAY ==
--- NOTE | 2023-07-21 14:41 | OPREHPOC ---
Outpatient Therapy Plan of Care This is a Multidisciplinary Plan of Care that may contain components documented by all disciplines (PT, OT, and ST.) PT Problem 1 PT Problem #1 Knowledge Deficit PT Goal 1 Goal 1. independent and compliant with HEP Target Visit 4 PT Problem 2 PT Problem #2 Pain PT Goal 1 Goal 1. decrease pain at worst to 4/10 or less in the L shoulder Target Visit 9 PT Problem 3 PT Problem #3 Impaired Range of Motion PT Goal 1 Goal 1. achieve 130 degrees or better bilateral active flexion rom 2. achieve 60 degrees or better bilateral active ER rom Target Visit 9 PT Problem 4 PT Problem #4 Impaired Strength PT Goal 1 Goal 1. 4/5 or better bilat shoulder strength overal Target Visit 9 PT Problem 5 PT Problem #5 Impaired Functional Mobil PT Goal 1 Goal 1. patient to tolerate ambulation with rollator without increased L shoulder pain 2. patient to report increased easy getting dressed and washing hair without shoulder pain 3. quick dash to display 50% or less functional deficits Target Visit 9
--- NOTE | 2023-07-21 14:42 | PTOPEVAL1 ---
Assessment and note entered by JT File, PT Evaluation Information Assessment Status Evaluation Diagnosis L shoulder pain Onset 05/28/23 Subjective Information patient reports she has pain in the L shoulder. she reports it began in the arm and went down to the hand. however, she also has pain in the upper shoulder. she had an injection to the L shoulder. she reports it was on the outside of the shoulder, but reports her pain was worst along the collar bone at the time. she reports the injection did not help. she reports she sees pain management for her back. she reports the meds from the back do not help the shoulder. she reports it is difficult for her to push through the L arm to stabilize herself on her walker to stand/ambulate. she reports she also has pain at rest when sitting. she reports she has no NTB in the L UE. pain with lifting the rollator in and out of the trunk of her car. she reports she is affected by not being able to use the L hand to aid in cooking/cleaning. Reported Pain Level Pain Score 5: Self Report Assessment PT Clinical Summary mrs. lubin is an 88 yo woman who presents to skilled PT services for evaluation and treatment of L shoulder pain. she presents with pain at rest and with movement, decreased active and passive rom, deficits in lifting/pushing, and decreased quality of life. she displays signs and symptoms consistent with OA of the L shoulder, as well as, rotator cuff arthropathy. continued skilled PT is indicated to improve her objective/functional deficits and progress towards a return to her prior level functional activity performance and quality of life. Plan of Care Interventions Electrical Stimulation,Hot Pack/Cold Pack,Manual Therapy,Neuro Re-education,Patient/Caregiver Educati,Therapeutic Activities,Therapeutic Exercise PT Services Indicated Yes Treatment Frequency and 3x weekly for 9 visits Duration These treatments will address the objective and functional deficits as defined above. The patient will be advanced safely and appropriately in order for the patient to progress towards his/her prior level of function. Additional exercises will be introduced and as well as a comprehensive home exercise program upon discharge, if needed, ?to ensure carryover of functional gains achieved in the clinic. This treatment plan has been reviewed and agreement upon by the patient.
--- NOTE | 2023-08-11 11:32 | OPREHPOC ---
Outpatient Therapy Plan of Care This is a Multidisciplinary Plan of Care that may contain components documented by all disciplines (PT, OT, and ST.) PT Problem 1 PT Problem #1 Knowledge Deficit PT Goal 1 Goal 1. independent and compliant with HEP Target Visit 15 Progress Not Met PT Problem 2 PT Problem #2 Pain PT Goal 1 Goal 1. decrease pain at worst to 4/10 or less in the L shoulder Target Visit 15 Progress Not Met PT Problem 3 PT Problem #3 Impaired Range of Motion PT Goal 1 Goal 1. achieve 130 degrees or better bilateral active flexion rom. progressing 2. achieve 60 degrees or better bilateral active ER rom. progressing Target Visit 15 Progress Not Met PT Problem 4 PT Problem #4 Impaired Strength PT Goal 1 Goal 1. 4/5 or better bilat shoulder strength overall Target Visit 15 Progress Not Met PT Problem 5 PT Problem #5 Impaired Functional Mobil PT Goal 1 Goal 1. patient to tolerate ambulation with rollator without increased L shoulder pain 2. patient to report increased easy getting dressed and washing hair without shoulder pain 3. quick dash to display 50% or less functional deficits. met Target Visit 15 Progress Partially Met
--- NOTE | 2023-08-11 11:32 | PTOPREEVAL ---
Assessment and note entered by JT File, PT Evaluation Information Assessment Status Re-evaluation Diagnosis L shoulder pain ICD-10 Condition Codes (PT) M25.512 Onset 05/28/23 Subjective Information patient reports the shoulder is feeling a little better. she reports she is better at picking up her walker to get in the car, but still has to use the R hand to perform all hair care and self care . Reported Pain Level Pain Score 8: Self Report Assessment PT Clinical Summary mrs. lubin presents to skilled PT for her 9th skilled PT visit for L shoulder pain. she continues to present with signs and symptoms indicative of L shoulder OA and rotator cuff arthropathy. however, she displays improved shoulder active/passive rom and improvement in strength. she reports significant improvement thus far on the quick dash. she has made progress towards goals in skilled PT, but continues to have several unmet goals. given her progress thus far on subjective/objective reports/measurements, continued skilled PT is indicate to progress towards achievement of unmet goals and improve her functional activity performance/quality of life. Plan of Care Interventions Electrical Stimulation,Hot Pack/Cold Pack,Manual Therapy,Neuro Re-education,Patient/Caregiver Educati,Therapeutic Activities,Therapeutic Exercise PT Services Indicated Yes Treatment Frequency and continue skilled PT 2x weekly for 6 more visits Duration These treatments will address the objective and functional deficits as defined above. The patient will be advanced safely and appropriately in order for the patient to progress towards his/her prior level of function. Additional exercises will be introduced and as well as a comprehensive home exercise program upon discharge, if needed, ?to ensure carryover of functional gains achieved in the clinic. This treatment plan has been reviewed and agreement upon by the patient.
--- NOTE | 2023-09-03 16:00 | PTOPDC ---
Assessment and note entered by JT File, PT Evaluation Information Assessment Status Discharge Diagnosis L shoulder pain ICD-10 Condition Codes (PT) M25.512 Onset 05/28/23 Subjective Information patient reports she feels About the same today. she reports she has continued weakness and deficits in use of the L shoulder. however, she reports she gets around doing all her home activities, but just pushes through the pain. she reports she is meeting with her pain management in the near future to go over the ability to have gel injections to the L shoulder. Reported Pain Level Pain Score 5: Self Report Assessment PT Clinical Summary mrs. lubin presents to skilled PT services for her 15th skilled PT visit for the L shoulder. she continues to have deficits in rom of the L shoulder, weakness of the L shoulder, and pain with movement/use of the L shoulder. she has regressed some in her quick dash score, but this could be explained by better understanding and explanation of a few questions. she has progress towards, but not met goals other than HEP as of this date. she will DC skilled PT today, and continue with HEP independent at home. Plan of Care PT Services Indicated Yes
== END 2023-09-03 16:22 | disposition home or self-care (01) ==
LOC: CHSPT 13:50
PROVIDERS: Visit Provider Nurse Practitioner Family
DX: M25.512 Pain in left shoulder (principal)
CPT/HCPCS: 97014; 97110; 97140; 97150; 97161; G0283

== ENCOUNTER 2023-11-24 14:49 | Outpatient (CLI) | payer MEDICARE, SELFPAY ==
[2023-11-24 15:05] LABS: Add Urine Microscopic? YES; Appearance Urine Clear (Clear); Bilirubin Urine Negative (Negative); Blood Urine Negative (Negative); Color Urine Light Yellow (Yellow); Glucose Urine UA Negative (Negative); Ketones Urine Negative (Negative); Leukocyte Esterase Ur 1+ LEU/UL (Negative); Nitrate Urine Positive (Negative); Protein Urine Negative (Negative); Specific Grav Ur 1.015 (1.010-1.020); Urobilinogen Urine 0.2 mg/dL (0.2-1.0); pH Urine 5.5 (5.0-8.0)
[2023-11-24 15:17] LABS: RBC Urine None seen /hpf (0-2)
[2023-11-24 15:18] LABS: Bacteria Urine 2+ /hpf; Squamous Epithelial Cell Urine Few /hpf (Few); WBC Clumps Urine Present /hpf; WBC Urine 16-20 /hpf (0-3)
== END 2023-11-24 14:50 | disposition home or self-care (01) ==
LOC: CHSLAB 14:50
PROVIDERS: PCP Nurse Practitioner Family; Visit Provider Nurse Practitioner Family
DX: R39.9 Unspecified symptoms and signs involving the genitourinary system (principal)
CPT/HCPCS: 81001; 87077; 87086; 87088; 87186

== ENCOUNTER 2023-11-30 15:38 | Outpatient (CLI) | payer MEDICARE, SELFPAY ==
--- NOTE | 2023-11-30 15:52 | ECG_ITS ---
Test Date: 2023-11-30 16:14:20 Measurements Intervals [place] Rate: 60 P: 74 AK: 164 QRS: 80 QRSD: 125 T: 52 QT: 394 QTc: 396 Interpretive Statements SINUS RHYTHM WITH SINUS ARRHYTHMIA RIGHT BUNDLE BRANCH BLOCK [120+ ms QRS DURATION, UPRIGHT V1, 40+ ms S IN I/aVL/V4/V5/V6] No previous ECG available for comparison Electronically Signed On 12-01-2023 09:38:19 CDT by Zuleika Alejandre M.D.
[2023-11-30 16:18] LABS: Basophils Absolute Auto 0.04 K/mm3 (0.00-0.10); Basophils Percent Auto 0.6 % (0.0-1.0); Eosinophils Absolute Auto 0.31 K/mm3 (0.02-0.50); Eosinophils Percent Auto 4.7 % (1.0-6.0); Hematocrit 34.7 % (35.0-42.0); Hemoglobin 11.1 g/dL (11.7-13.8); Immature Granulocyte Absolute 0.01 K/mm3 (0.00-0.00); Immature Granulocyte Percent A 0.2 % (0.0-0.0); Lymphocytes Absolute Auto 2.13 K/mm3 (1.10-4.50); Lymphocytes Percent Auto 32.5 % (18.0-42.0); Mean Corpuscular Hemoglobin 27.8 pg (27.0-31.0); Mean Corpuscular Volume 86.8 fL (78.0-102.0); Mean Platelet Volume 9.4 fl (9.2-11.8); Monocytes Absolute Auto 0.59 K/mm3 (0.10-0.90); Neutrophils Absolute Auto 3.48 K/mm3 (1.70-7.20); Platelet Count Result 337 K/mm3 (150-420); White Blood Count 6.6 K/mm3 (4.8-10.8)
[2023-11-30 16:48] LABS: Alanine Aminotransferase 23 U/L (14-59); Albumin Level 3.6 g/dL (3.4-5.0); Alkaline Phosphatase 82 U/L (46-116); Anion Gap 11 mmol/L (4-12); Aspartate Amino Transferase 18 U/L (15-37); Bilirubin,Total 0.4 mg/dL (0.00-1.00); Blood Urea Nitrogen 15 mg/dL (7-18); Calcium 9.3 mg/dL (8.5-10.1); Carbon Dioxide 27 mmol/L (21-32); Chloride 100 mmol/L (98-108); Cholesterol 161 mg/dL (0-200); Estimated Glomerular Filt Rate > 60; Free T4 Free Thyroxine 0.97 ng/dL (0.76-1.46); Glucose 174 mg/dL (70-99); HDL Direct 47 mg/dL (40-60); Iron 58 ug/dL (50-170); LDL Cholesterol Calculated 81 mg/dL (<130); Magnesium 1.7 mg/dL (1.8-2.4); Osmolality Calculated 290 mOsm/kg (285-295); Potassium 4.3 mmol/L (3.5-5.1); Sodium 138 mmol/L (136-145); Thyroid Stimulating Hormone 1.11 uIU/mL (0.36-3.74); Total Protein 6.8 g/dL (6.4-8.2); Triglycerides 164 mg/dL (0-150)
[2023-12-02 06:43] LABS: Vitamin D 25 Hydroxy 54 ng/mL (30-100)
[2023-12-02 16:19] LABS: Total Triiodothyronine (T3) 102 ng/dL (76-181)
== END 2023-11-30 15:39 | disposition home or self-care (01) ==
PROVIDERS: PCP Nurse Practitioner Family; Visit Provider Nurse Practitioner Family
DX: E78.5 Hyperlipidemia, unspecified (principal); E83.42 Hypomagnesemia; R00.1 Bradycardia, unspecified; Z79.899 Other long term (current) drug therapy; I49.8 Other specified cardiac arrhythmias; I45.10 Unspecified right bundle-branch block
CPT/HCPCS: 36415; 80053; 80061; 82306; 83540; 83735; 84439; 84443; 84480; 85025; 93005

== ENCOUNTER 2023-12-10 13:45 | Outpatient (CLI) | payer MEDICARE, SELFPAY ==
--- NOTE | 2023-12-10 13:51 | ECHO_ITS ---
Patient Info Name: Aby Gómez Age: 88 years : 1935 Gender: Female HR: 95 bpm Heart Rhythm: Sinus Rhythm Technical Quality: Good Exam Date: 12/10/2023 1:46 PM Exam Location: [facility] Patient Status: Outpatient Admit Date: 12/10/2023 Staff Ordering Physician: Giuliana Medel APRN [employer] Teacher: Jane Jimenez RDCS Attending Provider: Giuliana Medel APRN Exam Type: CA echo doppler color flow Study Info Indications - sob, michael cardia Complete two-dimensional, color flow and Doppler transthoracic echocardiogram is performed. Summary 1. Complete two-dimensional, color flow and Doppler transthoracic echocardiogram is performed. 2. Left ventricular chamber dimension is normal. 3. Left ventricular systolic function is normal, estimated at 65-70%. 4. There is mild concentric increased left ventricular wall thickness. 5. The left ventricular diastolic function is grade I diastolic dysfunction. 6. E/e' 19 is elevated. 7. Left atrial chamber dimension is mildly enlarged. 8. There is mild aortic valve sclerosis. 9. The mitral valve has moderately calcified annulus. 10. There is trace mitral valve regurgitation. 11. There is trace tricuspid valve regurgitation. 12. Mild pulmonary hypertension, estimated pulmonary arterial systolic pressure is 41 mmHg. Left Ventricle E/e' 19 is elevated. Left ventricular chamber dimension is normal. Left ventricular systolic function is normal, estimated at 65-70%. There is mild concentric increased left ventricular wall thickness. The left ventricular diastolic function is grade I diastolic dysfunction. Right Ventricle Right ventricular systolic function is normal and with normal TAPSE 2.5 cm. Right ventricular chamber dimension is normal. Left Atria Left atrial chamber dimension is mildly enlarged. Right Atria Right atrial chamber dimension is normal. Aortic Valve The aortic valve is trileaflet. There is mild aortic valve sclerosis. There is no aortic valve stenosis. There is no aortic valve regurgitation. Pulmonic Valve There is no pulmonic regurgitation. Mitral Valve The mitral valve has moderately calcified annulus. There is no mitral valve stenosis. There is trace mitral valve regurgitation. Tricuspid Valve There is trace tricuspid valve regurgitation. Mild pulmonary hypertension, estimated pulmonary arterial systolic pressure is 41 mmHg. Pericardium/Pleural There is no pericardial effusion. Inferior Vena Cava Normal inferior vena cava with >50% collapse upon inspiration consistent with normal right atrial pressure, 5 mmHg. Aorta The aortic root size at the sinus of Valsalva is normal. Left Ventricular Outflow Tract Name Value Normal LVOT 2D LVOT Diameter 1.7 cm LVOT Doppler LVOT Peak Velocity 151 cm/s LVOT Peak Gradient 9 mmHg LVOT Mean Gradient 4 mmHg LVOT VTI 24 cm LVOT VTI/AV VTI Ratio 0.5 LVOT Stroke Volume 56 ml Pulmonic Valve Name Value Normal PV Doppler PV Peak Velocity 95 cm/s PV Peak Gradient 4 mmHg Mitral Valve Name Value Normal MV Doppler MV Decel [place] 595 cm/s2 MV PHT 52 ms MV Area (PHT) 4.2 cm2 4.0-5.0 MV Diastolic Function MV E Peak Velocity 107 cm/s MV A Peak Velocity 134 cm/s MV E/A 0.8 MV Decel Time 179 ms Tricuspid Valve Name Value Normal TV Regurgitation Doppler TR Peak Velocity 299 cm/s TR Peak Gradient 36 mmHg Estimated PAP/RSVP RA Pressure 5 mmHg <=5 PA Systolic Pressure 41 mmHg <36 RV Systolic Pressure 41 mmHg <36 Aortic Valve Name Value Normal AV Doppler AV Peak Velocity 202 cm/s AV Peak Gradient 16 mmHg AV Mean Gradient 12 mmHg AV VTI 47 cm AV Area (Cont Eq VTI) 1.2 cm2 >=3.0 AV Area (Cont Eq Casey) 1.7 cm2 AV V1/V2 Ratio 0.75 AV Regurgitation 2D LVOT Area 2.3 cm2 Ventricles Name Value Normal LV Dimensions 2D/MM IVS Diastolic Thickness (2D) 1.2 cm 0.6-1.0 LVID Diastole (2D) 3.6 cm 3.8-5.2 LVIW Diastolic Thickness (2D) 1.1 cm 0.6-0.9 LVID Systole (2D) 2.2 cm 2.2-3.5 LVOT Diameter 1.7 cm LV Mass (2D Cubed) 133.82 g 67.00-162.00 Relative Wall Thickness (2D) 0.62 LV Fractional Shortening/Ejection Fraction 2D/MM LV Fractional Shortening (2D) 38 % 27-45 LV EF (2D Teicholz) 69 % 54-74 LV Diastolic Volume (4C MOD) 63 ml LV EF (4C MOD) 78 % LV Diastolic Volume (2C MOD) 64 ml LV EF (2C MOD) 59 % LV Diastolic Volume (BP MOD) 67 ml 46-106 LV Systolic Volume (BP MOD) 21 ml 14-42 LV EF (BP MOD) 69 % 54-74 LV Diastolic Length (4C) 6.4 cm LV Systolic Length (4C) 4.3 cm LV Stroke Volume (4C MOD) 49 ml Atria Name Value Normal LA Dimensions LA Volume (4C A-L) 29 ml LA Volume (BP A-L) 25 ml RA Dimensions RA Area (4C) 7.7 cm2 <=18.0 Report Signatures
== END 2023-12-10 13:46 | disposition home or self-care (01) ==
LOC: CHSIMG 13:48
PROVIDERS: PCP Nurse Practitioner Family; Visit Provider Nurse Practitioner Family
DX: R00.1 Bradycardia, unspecified (principal); R53.83 Other fatigue; R94.31 Abnormal electrocardiogram [ECG] [EKG]; R06.02 Shortness of breath; I45.10 Unspecified right bundle-branch block; I27.20 Pulmonary hypertension, unspecified; I35.8 Other nonrheumatic aortic valve disorders
CPT/HCPCS: 93306

== ENCOUNTER 2024-01-27 15:10 | Outpatient (NON) | payer MEDICARE, SELFPAY ==
[2024-01-27 15:28] LABS: Add Urine Microscopic? YES; Appearance Urine Clear (Clear); Bilirubin Urine Negative (Negative); Blood Urine Negative (Negative); Color Urine Light Yellow (Yellow); Glucose Urine UA Negative (Negative); Ketones Urine Negative (Negative); Leukocyte Esterase Ur 1+ LEU/UL (Negative); Nitrate Urine Positive (Negative); Protein Urine Negative (Negative); Specific Grav Ur 1.025 (1.010-1.020); Urobilinogen Urine 0.2 mg/dL (0.2-1.0); pH Urine 5.5 (5.0-8.0)
[2024-01-27 16:34] LABS: Bacteria Urine 4+ /hpf; RBC Urine 0-2 /hpf (0-2); Squamous Epithelial Cell Urine Few /hpf (Few); WBC Urine 31-50 /hpf (0-3)
== END 2024-01-27 15:11 | disposition home or self-care (01) ==
LOC: CHSLAB 15:13
PROVIDERS: PCP Nurse Practitioner Family; Visit Provider Nurse Practitioner Family
DX: R39.9 Unspecified symptoms and signs involving the genitourinary system (principal)
CPT/HCPCS: 81001; 87086; 87186

== ENCOUNTER 2024-02-18 15:42 | Outpatient (CLI) | payer MEDICARE, SELFPAY ==
[2024-02-18 15:55] LABS: Add Urine Microscopic? YES; Appearance Urine Clear (Clear); Bilirubin Urine Negative (Negative); Blood Urine Negative (Negative); Color Urine Light Yellow (Yellow); Glucose Urine UA Negative (Negative); Ketones Urine Negative (Negative); Leukocyte Esterase Ur 2+ (Negative); Nitrate Urine Positive (Negative); Protein Urine Negative (Negative); Urobilinogen Urine 0.2 mg/dL (0.2-1.0)
[2024-02-18 16:02] LABS: Bacteria Urine 3+ /hpf; RBC Urine None seen /hpf (0-2); Squamous Epithelial Cell Urine Moderate /hpf (Few); WBC Urine 31-50 /hpf (0-3)
== END 2024-02-18 15:43 | disposition home or self-care (01) ==
PROVIDERS: PCP Nurse Practitioner Family; Visit Provider Family Medicine
DX: N39.0 Urinary tract infection, site not specified (principal)
CPT/HCPCS: 81001

== ENCOUNTER 2024-07-11 15:35 | Outpatient (NON) | payer MEDICARE, SELFPAY ==
--- OUTSIDE RECORDS SUMMARY | 2024-07-11 15:40 | XMS_ITS | Continuity of Care Document ---
Author Organization [facility] Address [address] [place] [id number] Phone Care Team Providers Care Digital Press Operator Name Role Phone Steven Diez MD [...] Diagnoses Date Provider Providers Copied on Encounter [facility], [address] [place] [address] [address], [place], [place], [id number], tel:[phone] SEC [place] Professional No Information 1 Rg Harris. [email or web address], [address], [place], [place], [id number], [place]. tel:[phone] [facility], [address] [place] [address] [address], [place], [place], [id number], tel:[phone] SEC [place] Professional Yag PC po OS / Yag PC OD (chief complaint) Post op visitOther secondary cataract, right eye 1 Rg Harris. [email or web address], [address], [place], [place], [id number], [place]. tel:[phone] Referring Provider: Sun Page, [address], [facility]. tel:[phone] Office/outpa tient Visit, [facility], [address] [place] [address] [address], [place], [place], [id number], tel:[phone] SEC [place] Professional yag pc evaluation (chief complaint) Presence of intraocular lensOther secondary cataract, bilateralVit reous degeneration , bilateralDru sen (degenerativ e) of macula, right eyeOther secondary cataract, left eye 1 Rg Harris. [email or web address], [address], [place], [place], [id number], [place]. tel:[phone] Referring Provider: Sun Page, [address], [address]. tel:[phone] [facility], [address] [place], [place], [place], [id number], [place] tel:[phone] SEC [place] JONES Professional No Information 1 Rg Harris. [address], [place], [place], [address], [place]. tel:[phone] Referring Provider: Sun Page, [facility] [address], [address]. tel:[phone] Family History Family Member Type Diagnosis Age At Onset Problem Family history of degenerati ve disorder of macula Problem Family history of glaucoma Payers Payer name Insurance type Covered green party ID Authoriza tikathleen(s) Medicare [facility] [id number] [facility] [id number] Social History Type Description Quantity Date Captured [...]
[2024-07-11 16:17] LABS: Add Urine Microscopic? YES; Appearance Urine Clear (Clear); Bilirubin Urine Negative (Negative); Blood Urine Negative (Negative); Color Urine Light Yellow (Yellow); Glucose Urine UA Negative (Negative); Ketones Urine Negative (Negative); Leukocyte Esterase Ur 1+ LEU/UL (Negative); Nitrate Urine Positive (Negative); Protein Urine Negative (Negative); Specific Grav Ur 1.015 (1.010-1.020); Urobilinogen Urine 0.2 mg/dL (0.2-1.0); pH Urine 5.5 (5.0-8.0)
[2024-07-11 16:26] LABS: RBC Urine 0-2 /hpf (0-2); Squamous Epithelial Cell Urine Few /hpf (Few); WBC Urine 21-50 /hpf (0-3)
[2024-07-11 16:27] LABS: Bacteria Urine 4+ /hpf
== END 2024-07-11 15:36 | disposition home or self-care (01) ==
PROVIDERS: PCP Nurse Practitioner Family; Visit Provider Nurse Practitioner Family
DX: R82.90 Unspecified abnormal findings in urine (principal); Z87.898 Personal history of other specified conditions
CPT/HCPCS: 81001; 87086; 87186

== ENCOUNTER 2024-08-04 13:36 | Outpatient (CLI) | payer MEDICARE, SELFPAY ==
[2024-08-04 13:56] LABS: Add Urine Microscopic? NO; Appearance Urine Clear (Clear); Bilirubin Urine Negative (Negative); Blood Urine Negative (Negative); Glucose Urine UA Negative (Negative); Ketones Urine Negative (Negative); Leukocyte Esterase Ur Negative (Negative); Nitrate Urine Negative (Negative); Protein Urine Negative (Negative); Urobilinogen Urine 0.2 mg/dL (0.2-1.0)
[2024-08-04 13:58] LABS: Color Urine Yellow (Yellow)
== END 2024-08-04 13:37 | disposition home or self-care (01) ==
PROVIDERS: PCP Nurse Practitioner Family; Visit Provider Nurse Practitioner Family
DX: R39.9 Unspecified symptoms and signs involving the genitourinary system (principal)
CPT/HCPCS: 81003

== ENCOUNTER 2024-12-05 15:19 | Outpatient (NON) | payer MEDICARE, SELFPAY ==
--- OUTSIDE RECORDS SUMMARY | 2020-09-04 06:49 | XMS_ITS | Continuity of Care Document ---
Author Organization [facility] Address [address] [place] [id number] Phone Care Team Providers Care Elevated Work Platform Operator Name Role Phone Steven Diez MD Unavailable Unavailable Allergies, Adverse Reactions, Alerts Substance Reaction Status Criticality Sulfa (Sulfonamide Antibiotics) Active No Information Medications Medication Instructions Dosage Effective Dates (start - stop) Status Comments aspirin 81 mg tablet,delayed release take 1 tablet by oral route every day 81 MG - Active gabapentin 300 mg capsule take 1 capsule by oral route 3 times every day 300 MG - Active lisinopril 20 mg tablet take 1 tablet by oral route every day 20 MG - Active meclizine 12.5 mg tablet take 2 tablet by oral route 3 times every day as needed 25 MG - Active metformin 1,000 mg tablet take 1 tablet by oral route 2 times every day with morning and evening meals 1000 MG - Active metoprolol succinate ER 50 mg tablet,extended release 24 hr take 1 tablet by oral route every day 50 MG - Active omeprazole 20 mg capsule,delayed release take 1 capsule by oral route every day 30 minutes to 1 hour before a meal 20 MG - Active oxycodone-acetamino phen 10 mg-325 mg tablet take 1 tablet by oral route every 6 hours as needed 1.00 tablet - Active ropinirole 1 mg tablet take 1 tablet by oral route 3 times every day 1 MG - Active Vitamin D3 125 mcg (5,000 unit) tablet take 1 tablet by oral route every day 1 tablet - Active Procedures Procedure Date After Cataract Laser Surgery No Charge Refraction Post-op Follow-up Visit No Charge Refraction Fundus Photography W/ Report After Cataract Laser Surgery Office/outpatient Visit, New Advance Directives Directive Yes / No Effective Date File Name No Information Encounters Encounter Description Practice Location Reason(s) For Visit Diagnoses Date Provider Providers Copied on Encounter [facility], [address] [place] [address] [address], [place], [place], [id number], tel:[phone] [place] Professional No Information 1 Rg Harris. [address], [address], [place], [place], [id number], [place]. tel:[phone] [facility], [address] [place] [address] [address], [place], [place], [id number], tel:[phone] SEC [place] Professional Yag PC po OS / Yag PC OD (chief complaint) Post op visitOther secondary cataract, right eye 1 Rg Harris. [address], [address], [place], [place], [id number], [place]. tel:[phone] Referring Provider: Sun Page, [address], [facility]. tel:[phone] Office/outpa tient Visit, [facility], [address] [place] [address] [address], [place], [place], [id number], tel:[phone] SEC [place] Professional yag pc evaluation (chief complaint) Presence of intraocular lensOther secondary cataract, bilateralVit reous degeneration , bilateralDru sen (degenerativ e) of macula, right eyeOther secondary cataract, left eye 1 Rg Harris. [address], [address], [place], [place], [address], [place]. tel:[phone] Referring Provider: Sun Page, [address], [address]. tel:[phone] [facility], [address], [place], [place], [id number], [place] tel:[phone] SEC [place] JONES Professional No Information 1 Rg Harris. [address], [place], [place], [address], [place]. tel:[phone] Referring Provider: Sun Page, [facility] [address], [address]. tel:[phone] Family History Family Member Type Diagnosis Age At Onset Problem Family history of degenerati ve disorder of macula Problem Family history of glaucoma Payers Payer name Insurance type Covered republican ID Authoriza tikathleen(s) Medicare [facility] [id number] [facility] [id number] Social History Type Description Quantity Date Captured Comments Alcohol Use Details Unknown Caffeine Use Details Unknown Tobacco Use Status No Information Smoking Status No Information Sex Female Chief Complaint And Reason For Visit No Information Reason For Referral Reason For Referral No Information Plan Of Treatment Date Type Action Status Patient Education Learning About YAG Lase r Capsulotomy completed Patient Education Learning About YAG Lase r Capsulotomy completed History Of Present Illness Encounter Date Complaint History Of Prese nt Illness Yag PC po OS / Yag PC OD The 85 year old female presents for evaluation of Yag PC po OS / Yag PC OD. Pt reports good comfort and vision OS since Yag PC OS. Pt reports trouble driving at night, she sees glare from oncoming headlights at night OD x many months. yag pc evaluation The 85 year ol d female presents for evaluation of yag pc evaluation in the right eye and left eye. Patient states she has glaucoma and uses Timolol qam ou and Soothe qam ou. Patient is a Type II diabetic and doesn't usually check BS. Patient states her vision doesn't seem as sharp as 6 months ago. Patient is bothered by glare around lights at night. Patient has a hard time recognizing peoples faces from across the street. Patient had CE ou and is monovision. Functional Status Date Functional Assessmen t No Information Instructions Date Instruction Additional Infor mation Impression/Plan Impression/Plan Assessments Type Assessment Date No Information Patient Care Teams Name Effective Dates (start - stop) Status Members No Information
[2024-12-05 16:06] LABS: Add Urine Microscopic? YES; Appearance Urine Cloudy (Clear); Glucose Urine UA 3+ (Negative); Leukocyte Esterase Ur 1+ LEU/UL (Negative); Nitrate Urine Negative (Negative); Specific Grav Ur 1.015 (1.010-1.020)
--- OUTSIDE RECORDS SUMMARY | 2024-12-05 16:51 | XMS_ITS | Clinical Summary ---
Author Organization [facility] Address [address] [place] [address] Care Team Providers Care Process Operator Name Role Phone Unavailable Primary Care Provider Unavailabl e Social History Tobacco Use Types Packs/Day Years Used Date Smoking Tobacco: Never Comments Unknown Sex and Gender Information Value Date Recorded Sex Assigned at Not on file Legal Sex Female 10:51 PM CDT Gender Identity Not on file Sexual Orientation Not on file Last Filed Vital Signs Vital Sign Reading Time Taken Comments Blood Pressure 140/76 02/20/2012 12:08 PM STEREOTYPER Pulse 66 02/20/2012 12:08 PM STEREOTYPER Temperature - - Respiratory Rate 18 02/20/2012 12:08 PM STEREOTYPER Oxygen Saturation - - Inhaled Oxygen Concentration - - Weight 86.2 kg (190 lb) 02/20/2012 12:08 PM STEREOTYPER Height 157.5 cm (5' 2) 02/20/2012 12:08 PM STEREOTYPER Body Mass Index 34.75 02/20/2012 12:08 PM STEREOTYPER Plan of Treatment Health Maintenance Due Date Last Done Comments DTaP, Tdap and Td Vaccines ( 1 - Tdap) 02/10/1954 Pneumococcal Vaccine: 50+ Ye ars (1 of 1 - PCV) 1987 Zoster Vaccines (1 of 2) 1987 RSV Immunization or 60+ Years (1 - 1-dose 75+ series) 02/10/2012 COVID-19 Vaccine ( - 2024-2 6 season) 2024 Influenza Adult (#1) 2024 Hepatitis A Vaccines Aged Out No long er eligible based on patient's age to complete this topic Meningococcal B Vaccine Aged Out No l onger eligible based on patient's age to complete this topic Meningococcal Vaccine Aged Out No tiffanie ayde eligible based on patient's age to complete this topic RSV Immunizations Under 20 Months Aged Out No longer eligible based on patient's age to complete this topic
--- OUTSIDE RECORDS SUMMARY | 2024-12-05 16:51 | XMS_ITS | Encounter Summary ---
Author Organization [facility] Address [address] [place] [address] Care Team Providers Care Video Photographer Name Role Phone Unavailable Primary Care Provider Unavailabl e Encounter Details Date Type Department Care Team (Late st Contact Info) Description 07/17/2018 Abstract SFL CONVERSION [address] [place] [address] , Generic Conversion, Social History Tobacco Use Types Packs/Day Years Used Date Smoking Tobacco: Never Comments Unknown Sex and Gender Information Value Date Recorded Sex Assigned at Not on file Legal Sex Female 10:51 PM CDT Gender Identity Not on file Sexual Orientation Not on file documented as of this encounter Plan of Treatment Not on file documented as of this encounter Visit Diagnoses Not on filedocumented in this encounter
== END 2024-12-05 15:20 | disposition home or self-care (01) ==
PROVIDERS: Visit Provider Nurse Practitioner Family
DX: R82.90 Unspecified abnormal findings in urine (principal); Z87.898 Personal history of other specified conditions
CPT/HCPCS: 81001; 87077; 87086; 87186